=== PATIENT | male | born 1980 | race Caucasian/White ===

== ENCOUNTER 2021-06-30 07:52 | Day surgery (SDC) | payer BC ==
[~2021-06-30 07:52] MED LIST: fentaNYL 100 MCG/2 ML SDV ONE
[2021-06-30] MEDS ORDERED: Lactated Ringers 1,000 ML IV SCH (08:30)
[2021-06-30] MEDS ORDERED: Propofol 200 MG/20 ML SDV ONE (09:19)
== END 2021-06-30 11:05 | disposition home or self-care (01) ==
LOC: MW.SDS 07:52
PROVIDERS: ATTEND Surgery
DX: K22.10 Ulcer of esophagus without bleeding (principal); K62.5 Hemorrhage of anus and rectum; K57.30 Diverticulosis of large intestine without perforation or abscess without bleeding; K29.80 Duodenitis without bleeding; K44.9 Diaphragmatic hernia without obstruction or gangrene; K22.89 Other specified disease of esophagus; K31.A0 Gastric intestinal metaplasia, unspecified; I78.1 Nevus, non-neoplastic; K31.89 Other diseases of stomach and duodenum; K21.00 Gastro-esophageal reflux disease with esophagitis, without bleeding; Z98.890 Other specified postprocedural states
CPT/HCPCS: 43239; 45378; J2704; J3010; J7120; 00813; J2370